=== PATIENT | female | born 1990 | race Caucasian/White ===

== ENCOUNTER 2019-10-06 16:48 | Emergency (ER) | payer OTHER ==
[2019-10-06 17:42] LABS: #Basophils 0.1 thou/uL (0.0-0.2); #Eosinphils 0.2 thou/uL (0.0-0.7); #Lymphocytes 3.4 thou/uL (1.20-3.40); #Monocytes 0.6 thou/uL (0.11-0.59); #Neutrophils 7.7 thou/uL (1.40-6.50); %Basophils 0.6 % (0.0-1.0); %Eosinophils 1.9 % (0.0-10.0); %Lymphocytes 28.2 % (21.0-51.0); %Monocytes 4.6 % (0.0-10.0); %Neutrophils 64.8 % (42.0-75.0); Hemoglobin 12.7 g/dL (12.0-16.0); Mean Corpuscular HGB CONC 32.8 g/dL (32.0-36.0); Mean Corpuscular Hemoglobin 29.1 pg (27.0-31.0); Mean Corpuscular Volume 88.7 fL (78.0-98.0); Mean Platelet Volume 8.5 fL (7.4-10.4); Platelet Count 296 thou/uL (130-400); RBC Distribution Width 11.9 % (11.5-14.5); Red Blood Cell (RBC) Count 4.38 mill/uL (4.20-5.40); White Blood Cell (WBC) Count 11.9 thou/uL (4.8-10.8)
[2019-10-06 17:51] LABS: Bacteria/HPF 4+ HPF (None Seen); Bilirubin Negative (Negative); Blood, Urine 2+ (Negative); Clarity Turbid (Clear); Glucose, Urine (Dipstick) Normal (Negative); Ketone, Urine Negative (Negative); Leukocyte 500 Leu/uL (Negative); Nitrite Negative (Negative); Protein, Urine (Dipstick) 30 mg/dL (Neg-Trace); RBC/HPF Greater than 50 HPF (0-3); Specific Gravity, Urine 1.018 (1.002-1.036); Urobilinogen Normal mg/dL (Less than 2); WBC/HPF Greater than 50 HPF (0-3)
--- NOTE | 2019-10-06 19:15 | ULT ---
ULTRASOUND PELVIC ULTRASOUND TRANSVAGINAL DOPPLER DUPLEX: 10/06/19 HISTORY: 29-year-old female with pelvic pain and positive test, vaginal bleeding. TECHNIQUE: Transabdominal transducer used to evaluate intrapelvic contents using the urinary bladder as an acous tic window. Endovaginal transducer used to visualize intrapelvic contents in greater detail. Color fl ow Doppler and Pulsed Doppler spectral waveform analysis of ovaries. FINDINGS: Uterus: 8.5 x 4.5 x 5.5 cm. Endometrial stripe: 0.8 cm (8 mm). No intrauterine gestational sac identified. No ectopic gestational sac identified, but a negative ultrasound does not exclude it. Right ovary: 3.4 x 3.5 x 2.1 cm. Left ovary: 2.9 x 2.2 x 2.2 cm. 1.5 x 1 x 1 cm dominant follicle in the right ovary, which may or may not be a corpus luteal cyst. Blood flow demonstrated in both ovaries by Doppler. No significant free fluid in the cul-de-sac. IMPRESSION: No evidence of intrauterine gestation. JONATHON Krishnamurthy POS: LUIS
== END 2019-10-06 20:22 | disposition home or self-care (01) ==
LOC: ERS 16:48
DX: O20.0 Threatened abortion (principal)
CPT/HCPCS: 36415; 76856; 81003; 81015; 84702; 85025; 86900; 86901; 87086

== ENCOUNTER 2020-03-05 10:02 | Outpatient (CLI) | payer OTHER ==
--- NOTE | 2020-03-05 11:22 | ULT ---
PELVIC ULTRASOUND: INDICATION: Assess intrauterine viability. FINDINGS: There is an intrauterine . The crown-rump length indicates a 9-week 0-day gestational age. No heart tones or activity identified by Doppler. Echogenicity is seen adjacent to the gestat ional sac indicating a subchorionic hemorrhage. IMPRESSION: Evidence of demise. No cardiac activity identified. There is evidence of a subchorionic hemorrhage. Attempt is made to relay this finding to [facility]; however, contact with a medical person at [facility] could not be achieved by the phone system. If telephone followup is desired for [facility] patients, please give cell phone numbers for notifi cation as contact through the [facility] phone system cannot be achieved. POS: LUCIA
== END 2020-03-05 10:03 | disposition home or self-care (01) ==
LOC: BICULT 10:02
PROVIDERS: ATTEND Nurse Practitioner
DX: Z34.81 Encounter for supervision of other normal pregnancy, first trimester (principal); O36.4XX0 Maternal care for intrauterine death, not applicable or unspecified; O20.8 Other hemorrhage in early pregnancy
CPT/HCPCS: 76856